=== PATIENT | male | born 1990 | race Caucasian/White ===

== ENCOUNTER 2018-05-27 21:05 | Emergency (ER) | payer MEDICAID, OTHER ==
[~2018-05-27] VITALS: Ht 177.8 cm; Wt 88.0 kg
[~2018-05-27 21:05] MED LIST: CYCL-1 PO; DIPH-423 PO; IBUP-1986 PO; NAPR-996 PO; TRIA15CR61 TP
[2018-05-27 21:16] VITALS: BP 122/81
== END 2018-05-27 22:54 | disposition left against medical advice (07) ==
LOC: ER 21:06
DX: M79.643 Pain in unspecified hand (principal); Z53.21 Procedure and treatment not carried out due to patient leaving prior to being seen by health care provider

== ENCOUNTER 2018-06-17 21:54 | Emergency (ER) | payer MEDICAID ==
[~2018-06-17] VITALS: Ht 180.3 cm; Wt 77.7 kg
[2018-06-17 21:59] VITALS: BP 146/85
[2018-06-17] MEDS ORDERED: SULF1TAB49 PO (22:04)
[2018-06-17] MEDS ORDERED: sulfamethoxazole/trimethoprim DS (800/160mg) tablet PO ONE (22:05)
== END 2018-06-17 22:12 | disposition home or self-care (01) ==
LOC: ER 21:54
DX: L02.415 Cutaneous abscess of right lower limb (principal); L98.8 Other specified disorders of the skin and subcutaneous tissue; J45.909 Unspecified asthma, uncomplicated; G89.29 Other chronic pain; F17.200 Nicotine dependence, unspecified, uncomplicated; Z56.0 Unemployment, unspecified; Z79.899 Other long term (current) drug therapy
CPT/HCPCS: 99283

== ENCOUNTER 2019-03-18 21:03 | Emergency (ER) | payer MEDICAID, OTHER ==
[~2019-03-18] VITALS: Ht 177.8 cm; Wt 68.0 kg
[2019-03-18 21:10] VITALS: BP 124/78
[2019-03-18] MEDS ORDERED: TETanus/Pertussis (Acell)/Diphther VAC/PF (Tdap-Adult) 0.5ml syringe IMVAC ONE (21:50)
[2019-03-18] MEDS ORDERED: ketorolac trometh inj. 60 MG/2 ML VIAL IM ONE (22:05)
[2019-03-18] MEDS ORDERED: HYDR-3965 PO (23:10)
== END 2019-03-18 23:07 | disposition home or self-care (01) ==
LOC: ER 21:04
DX: S61.210A Laceration without foreign body of right index finger without damage to nail, initial encounter (principal); J45.909 Unspecified asthma, uncomplicated; G89.29 Other chronic pain; Z56.0 Unemployment, unspecified; Z79.899 Other long term (current) drug therapy; W26.0XXA Contact with knife, initial encounter; Y93.89 Activity, other specified; Y92.89 Other specified places as the place of occurrence of the external cause; Y99.8 Other external cause status
CPT/HCPCS: 12002; 90471; 90715; 96372; 99283; J1885

== ENCOUNTER 2020-12-01 00:44 | Emergency (ER) | payer MEDICAID ==
[~2020-12-01] VITALS: Ht 177.8 cm; Wt 70.5 kg
[2020-12-01 00:48] VITALS: BP 150/90
[2020-12-01] MEDS ORDERED: ketorolac tromethamine 15mg/ml inj. IM ONE (01:40)
[2020-12-01] MEDS ORDERED: cyclobenzaprine 10mg tablet PO ONE (01:40)
[2020-12-01] MEDS ORDERED: METH-797 PO (01:41)
[2020-12-01 02:34] LABS: CLARITY,URINE CLEAR (Clear); COLOR,URINE YELLOW (Yellow); PROTEIN,URINE 100 mg/dl (Neg); UA COLLECTION TYPE CLN CATCH MIDSTREAM
[2020-12-01 02:35] LABS: GLUCOSE, URINE NEGATIVE (Neg); KETONES,URINE NEGATIVE (Neg); LEUKOCYTE ESTERASE ,URINE NEGATIVE (Neg); NITRITES, URINE NEGATIVE (Neg); OCCULT BLOOD,URINE NEGATIVE (Neg); UROBILINOGEN,URINE 0.2 E.U/dL (0.2-1.0)
[2020-12-01 02:36] LABS: BACTERIA,URINE NONE SEEN /HPF (Neg); MUCUS STRANDS FEW /LPF (Neg); RBC,URINE NONE SEEN /HPF (0-2); SQUAMOUS EPITHELIAL CELL,UR NONE SEEN /LPF (FEW); WBC,URINE 0-4 /HPF (0-4)
== END 2020-12-01 02:13 | disposition home or self-care (01) ==
LOC: ER 00:45
DX: S39.012A Strain of muscle, fascia and tendon of lower back, initial encounter (principal); J45.909 Unspecified asthma, uncomplicated; G89.29 Other chronic pain; Z56.0 Unemployment, unspecified; Z79.899 Other long term (current) drug therapy; X58.XXXA Exposure to other specified factors, initial encounter; Y93.89 Activity, other specified; Y92.89 Other specified places as the place of occurrence of the external cause; Y99.8 Other external cause status
CPT/HCPCS: 81001; 96372; 99283; J1885

== ENCOUNTER 2021-08-13 23:10 | Emergency (ER) | payer MEDICAID ==
[~2021-08-13] VITALS: Ht 177.8 cm; Wt 70.5 kg
[~2021-08-13 23:10] MED LIST changes: +METH-797 PO
[2021-08-14 02:10] VITALS: BP 141/98
== END 2021-08-14 02:11 | disposition home or self-care (01) ==
LOC: ER 23:11
DX: Z00.00 Encounter for general adult medical examination without abnormal findings (principal); M79.652 Pain in left thigh; M79.651 Pain in right thigh; J45.909 Unspecified asthma, uncomplicated; G89.29 Other chronic pain; F17.200 Nicotine dependence, unspecified, uncomplicated; Z56.0 Unemployment, unspecified; Z79.899 Other long term (current) drug therapy
CPT/HCPCS: 99281; 99283

== ENCOUNTER 2022-03-22 19:23 | Emergency (ER) | payer MEDICAID ==
[~2022-03-22] VITALS: Ht 177.8 cm; Wt 89.9 kg
[2022-03-22 19:27] VITALS: BP 128/86
== END 2022-03-23 00:19 | disposition left against medical advice (07) ==
LOC: ER 19:24
DX: R10.9 Unspecified abdominal pain (principal); Z53.21 Procedure and treatment not carried out due to patient leaving prior to being seen by health care provider
CPT/HCPCS: 71101

== ENCOUNTER 2023-12-01 09:21 | Emergency (ER) | payer MEDICAID ==
[~2023-12-01] VITALS: Ht 177.8 cm; Wt 93.1 kg
[2023-12-01 09:28] VITALS: TEMP 98.2
[2023-12-01] MEDS ORDERED: CEPH-585 PO (13:09)
[2023-12-01] MEDS ORDERED: HYDR-3965 PO (13:09)
[2023-12-01] MEDS: ceFAZolin/D5W- 1GM premix 50 ML IV STA (13:10)
[2023-12-01] MEDS: LIDOcaine 1% 30ml preserv. free vial SQ STA (13:16)
[2023-12-01] MEDS: LIDOcaine 1% W/epiNEPHrine 1:100,000 20ml vial SQ ONE (13:16)
[2023-12-01 13:44] VITALS: BP 142/99; PULSE 80; RESP 16; O2SAT 100
== END 2023-12-01 13:42 | disposition home or self-care (01) ==
LOC: ER 09:22
DX: S62.630A Displaced fracture of distal phalanx of right index finger, initial encounter for closed fracture (principal); S61.210A Laceration without foreign body of right index finger without damage to nail, initial encounter; J45.909 Unspecified asthma, uncomplicated; G89.29 Other chronic pain; M54.9 Dorsalgia, unspecified; X58.XXXA Exposure to other specified factors, initial encounter; Y93.89 Activity, other specified; Y92.89 Other specified places as the place of occurrence of the external cause; Y99.8 Other external cause status; Z56.0 Unemployment, unspecified; Z79.899 Other long term (current) drug therapy; Z79.1 Long term (current) use of non-steroidal anti-inflammatories (NSAID)
CPT/HCPCS: 11760; 73130; 96365; 99285; A6222; J0690; J7030; A6258; A6449